=== PATIENT | male | born 1995 | race Caucasian/White ===

== ENCOUNTER 2017-02-03 13:10 | Emergency (ER) | payer OTHER, MEDICAID | END 2017-02-03 15:02 | disposition home or self-care (01) | LOC: D.ER 13:10 | DX: K13.0 Diseases of lips (principal); G40.909 Epilepsy, unspecified, not intractable, without status epilepticus; F17.200 Nicotine dependence, unspecified, uncomplicated ==

== ENCOUNTER 2017-06-07 14:05 | Emergency (ER) | payer MEDICAID | END 2017-06-07 16:30 | disposition home or self-care (01) | LOC: D.ER 14:05 | DX: S00.81XA Abrasion of other part of head, initial encounter (principal); Y04.2XXA Assault by strike against or bumped into by another person, initial encounter; Y93.89 Activity, other specified; Y92.410 Unspecified street and highway as the place of occurrence of the external cause; S02.2XXA Fracture of nasal bones, initial encounter for closed fracture; K13.0 Diseases of lips; S01.21XA Laceration without foreign body of nose, initial encounter; G40.909 Epilepsy, unspecified, not intractable, without status epilepticus; F17.200 Nicotine dependence, unspecified, uncomplicated ==

== ENCOUNTER 2017-08-21 09:31 | Emergency (ER) | payer MEDICAID, OTHER ==
[~2017-08-21] VITALS: Ht 177.8 cm; Wt 63.6 kg
[2017-08-21 09:43] VITALS: Ht 177.8 cm; Wt 63.6 kg
[2017-08-21] MEDS ORDERED: PREDNISONE10 MG PO (11:55)
[2017-08-21] MEDS ORDERED: PEPCID20 MG PO (11:55)
[2017-08-21 12:08] VITALS: BP 152/74
== END 2017-08-21 12:08 | disposition home or self-care (01) ==
LOC: D.ER 09:31
DX: R21 Rash and other nonspecific skin eruption (principal); F17.200 Nicotine dependence, unspecified, uncomplicated

== ENCOUNTER 2017-10-11 20:59 | Emergency (ER) | payer OTHER, MEDICAID ==
[~2017-10-11] VITALS: Ht 177.8 cm; Wt 63.6 kg
[~2017-10-11 20:59] MED LIST: PEPCID20 MG PO; PREDNISONE10 MG PO
[2017-10-11 21:04] VITALS: Ht 177.8 cm; Wt 63.6 kg
[2017-10-11 22:38] VITALS: BP 130/70
== END 2017-10-11 22:39 | disposition home or self-care (01) ==
LOC: D.ER 20:59
DX: S01.01XD Laceration without foreign body of scalp, subsequent encounter (principal); X58.XXXD Exposure to other specified factors, subsequent encounter; Z48.02 Encounter for removal of sutures; G40.909 Epilepsy, unspecified, not intractable, without status epilepticus; F17.200 Nicotine dependence, unspecified, uncomplicated

== ENCOUNTER 2019-06-07 23:45 | Emergency (ER) | payer OTHER ==
[~2019-06-07] VITALS: Ht 177.8 cm; Wt 65.9 kg
[2019-06-07 23:47] VITALS: Ht 177.8 cm; Wt 65.9 kg
[2019-06-07] MEDS ORDERED: ZYPREXA5 MG PO (23:54)
[2019-06-07] MEDS ORDERED: REMERON15 MG PO (23:54)
[2019-06-07] MEDS ORDERED: DEPAKENE 2250 MG/5 M PO (23:55)
[2019-06-08 00:17] LABS: BASOPHILS 0.9 % (0-2); EOSINOPHILS 6.6 % (0-7); HEMATOCRIT 46.4 % (42.0-54.0); HEMOGLOBIN 15.2 g/dL (13.5-17.5); IMMATURE GRANULOCYTES 0.2 % (0-5); LYMPHOCYTES 34.5 % (15-50); MCH 29.7 pg (26.0-34.0); MCHC 32.8 g/dL (31.0-37.0); MCV 90.8 fL (80.0-100.0); MEAN PLATELET VOLUME 9.7 fL (7.4-10.4); MONOCYTES 9.3 % (2-11); NEUTROPHILS 48.5 % (40-80); PLATELET COUNT 193 10x3/uL (130-400); RBC 5.11 10x6/uL (4.20-6.10); RDW 12.9 % (11.5-14.5); WBC 4.4 10x3/uL (4.8-10.8)
[2019-06-08 00:32] LABS: CALC OSMOLALITY 281 mosm/kg (275-300); CALCIUM 8.8 mg/dL (8.5-10.1); CARBON DIOXIDE 28.9 mmol/L (21.0-32.0); CHLORIDE - SERUM 104 mmol/L (98-107); CREATININE - SERUM 0.9 mg/dL (0.6-1.3); GLUCOSE 116 mg/dL (74-106); POTASSIUM - SERUM 4.1 mmol/L (3.5-5.1); SODIUM 140 mmol/L (136-145); UREA NITROGEN 18 mg/dL (7-18); eGFR NON AFRICAN AMERICAN > 90 mL/min (90-120)
[2019-06-08 00:37] LABS: ACETAMINOPHEN 0.3 ug/mL (10.0-30.0); ALBUMIN 3.7 g/dL (3.4-5.0); ALKALINE PHOSPHATASE 92 U/L (30-120); ALT (SGPT) 36 U/L (10-68); BILIRUBIN - TOTAL 0.32 mg/dL (0.2-1.3); MAGNESIUM - SERUM 2.3 mg/dL (1.8-2.4); PROTEIN - SERUM 6.9 g/dL (6.4-8.2)
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
[2019-06-08 00:58] VITALS: BP 122/78
== END 2019-06-08 00:59 | disposition home or self-care (01) ==
LOC: D.ER 23:45
PROVIDERS: Family Medicine
DX: R45.4 Irritability and anger (principal); F31.9 Bipolar disorder, unspecified